=== PATIENT | male | born 1940 | race Caucasian/White ===

== ENCOUNTER 2019-09-08 09:19 | Emergency (ER) | payer MEDICARE, OTHER ==
[~2019-09-08] VITALS: Ht 180.3 cm; Wt 110.2 kg
--- OUTSIDE RECORDS SUMMARY | ~2019-09-08 | XMS | Clinical Summary ---
Demographics + + + | Address | [address] | | | [place] [address] | + + + | Home Phone | | + + + | Preferred Language | Unknown | + + + | Marital Status | Single | + + + | Scientology Affiliation | Unknown | + + + | Race | Unknown | + + + | Ethnic Group | Unknown | + + + Author + + + | Author | [facility] [employer] (Historical as of | | | 04-13-19) | + + + | Organization | [facility] [employer] (Historical as of | | | 04-13-19) | + + + | Address | Unknown | + + + | Phone | Unavailable | + + + Support + + +---------+ + | Name | Relationship | Address | Phone | + + +---------+ + | BernardoZeinab | ECON | Unknown | | + + +---------+ + | Zenia Maharaj | ECON | Unknown | | + + +---------+ + | Julia Diaz | ECON | Unknown | Unavailable | + + +---------+ + | Nehemias Moreland | ECON | Unknown | | + + +---------+ + Care Team Providers + +------+ + | Care Roller Embosser Name | Role | Phone | + +------+ + | Henrik Oro DO | PP | | + +------+ + Allergies No Known Allergies Current Medications + + +--------+---------+------+------+-------+ | Prescription | Sig. | Disp. | Refills | Star | End | Statu | | | | | | t | Date | s | | | | | | Date | | | + + +--------+---------+------+------+-------+ | | Take 1 capsule by | | | | | Activ | | dipyridamole-aspirin | mouth 2 (two) times | | | | | e | | (AGGRENOX) 25-200 | daily. | | | | | | | MG per 12 hr capsule | | | | | | | + + +--------+---------+------+------+-------+ | diltiazem (DILACOR | Take 180 mg by mouth | | | | | Activ | | XR) 180 MG 24 hr | daily. | | | | | e | | capsule | | | | | | | + + +--------+---------+------+------+-------+ | sitaGLIPtin | Take 50 mg by mouth | | | | | Activ | | (JANUVIA) 50 MG | daily. | | | | | e | | tablet | | | | | | | + + +--------+---------+------+------+-------+ | repaglinide | Take 1 mg by mouth 3 | | | | | Activ | | (PRANDIN) 1 MG | (three) times daily | | | | | e | | tablet | before meals. | | | | | | + + +--------+---------+------+------+-------+ | atorvastatin | Take 1 tablet by | 90 | 3 | 03/0 | | Activ | | (LIPITOR) 10 MG | mouth nightly. | tablet | | 1/20 | | e | | tablet | | | | 17 | | | + + +--------+---------+------+------+-------+ | | Take 1 tablet by | 30 | 1 | 07/1 | 07/0 | Activ | | losartan-hydrochloro | mouth daily. | tablet | | 0/20 | 9/20 | e | | thiazide (HYZAAR) | | | | 19 | 20 | | | 50-12.5 MG per | | | | | | | | tablet | | | | | | | + + +--------+---------+------+------+-------+ Active Problems + + + | Problem | Noted Date | + + + | CAD (coronary artery disease) | 02/20/2014 | + + + + + | Last Assessment & Plan: CAD, Hx PCI/stent, LVEF 64%. | | 74yo WM, modestly active, walks daily, exercises, however | | activity limited because of back discomfort, denies any chest | | discomfort, shortness of breath, palpitations, or | | lightheadedness. No visual disturbances, dysarthria, dysphasia, | | lateralizing signs or symptoms. Labs reviewed. Tolerating | | medications. Continue current medications.Hx CABG: noHx | | PCI/stent: 2002, PCI/stent ([facility], specifics unknown).Hx | | Pacemaker/ICD: noLast Cath: 2002, PCI/stent ([facility], specifics | | unknown).Last Echo: naLast stress test, Adenosine MPI, 03/30/2011: | | no ischemia or infarction, LVEF 64%.ECG, 02/20/2014: sinus rhythm, | | PRWP. 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 | + + + + + | Hypertension | 02/20/2014 | + + + + + | Last Assessment & Plan: HTN, controlled, continue current | | meds at current dose (diltiazem, HCTZ, losartan). | + + + + + | Hyperlipidemia | 02/20/2014 | + + + + + | Last Assessment & Plan: Hyperlipidemia, at goal, continue | | current med occurring dose (atorvastatin). Recent labs reviewed | | with patient.Labs, 09/28/2015: T Chol: 99, LDL-Chol: 48, HDL-Chol: | | 31, Tri CPK: 59, Liver enzymes | | NML, K: 4.0, BUN/Cr: 25/1.3 (GFR 584), glu: 144 | | TSH: 1.73, HgbA1c: 6.8, WBC: 9.7, H/H: 15.8/47.8, plt: | | 197 | + + + + + | DM (diabetes mellitus), type 2 | 02/20/2014 | + + + + + | Last Assessment & Plan: DM2, managed by PCP. | + + Family History + +------+ + + | Relation | Name | Status | Comments | + +------+ + + | Father | | | unknwon status | + +------+ + + | Mother | | | unknown status | | | | (Age | | | | | 58) | | + +------+ + + Social History + + + +--------+ + | Tobacco Use | Types | Packs/Day | Years | Date | | | | | Used | | + + + +--------+ + | Current Every Day | Cigarettes | | | Started: 08/28/1949 | | Smoker | | | | | + + + +--------+ + + +---+---+---+ | Smokeless Tobacco: | | | | | Never Used | | | | + +---+---+---+ + + +---------+ + | Alcohol Use | Drinks/We | oz/Week | Comments | | | ek | | | + + +---------+ + | No | 0 | 0.0 | used to drink | | | Standard | | | | | drinks or | | | | | | | | | | equivalen | | | | | t | | | + + +---------+ + + + + | Sex Assigned at | Date Recorded | | | | + + + | Not on file | | + + + Last Filed Vital Signs + + + + | Vital Sign | Reading | Time Taken | + + + + | Blood Pressure | 130/84 | 03/06/2019 9:41 AM PDT | + + + + | Pulse | 90 | 03/06/2019 9:41 AM PDT | + + + + | Temperature | - | - | + + + + | Respiratory Rate | 17 | 10/22/2015 9:55 AM PST | + + + + | Oxygen Saturation | 95% | 03/06/2019 9:41 AM PDT | + + + + | Inhaled Oxygen | - | - | | Concentration | | | + + + + | Weight | 106.8 kg (235 lb 6.4 | 03/06/2019 9:41 AM PDT | | | oz) | | + + + + | Height | 180.3 cm (5' 11") | 03/06/2019 9:41 AM PDT | + + + + | Body Mass Index | 32.83 | 03/06/2019 9:41 AM PDT | + + + + Plan of Treatment +--------+---------+ + + + | Date | Type | Specialty | Care Team | Description | +--------+---------+ + + + | 03/11/ | Office | | Benitez Santos, | | | 2020 | Visit | | MD [facility] [address] | | | | | | Dr [address], | | | | | | [place] [id number] | | | | | | [phone] | | | | | | | | +--------+---------+ + + + + + + + + | Health Maintenance | Due Date | Last Done | Comments | + + + + + | Diabetic Eye Exam | | | | | | 0 | | | + + + + + | Diabetic Foot Exam | | | | | | 0 | | | + + + + + | Microalbumin | | | | | Screening | 0 | | | + + + + + | Vaccine: | | | | | Dtap/Tdap/Td (1 - | 9 | | | | Tdap) | | | | + + + + + | Vaccine: Zoster (1 | | | | | of 2) | 0 | | | + + + + + | Vaccine: | | | | | Pneumococcal 65+ | 5 | | | | Low/Medium Risk (1 | | | | | of 2 - PCV13) | | | | + + + + + | Vaccine: Influenza | | | | | (#1) | 9 | | | + + + + + Results Not on filefrom Last 3 Months Insurance + +--------+ +------+-------+ + | Payer | Benefi | Subscriber | Type | Phone | Address | | | t Plan | ID | | | | | | / | | | | | | | Group | | | | | + +--------+ +------+-------+ + | MEDICARE | MEDICA | [id number] | | | [address] | | | RE | | | | [place] [address] | | | IP-OP | | | | | + +--------+ +------+-------+ + | MAGALIE MARTINEZ - | CHERYL | [id number] | | | [address] [address] | | [place] | [place] | | | | [place] | | | LIFE | | | | [address] | + +--------+ +------+-------+ + + +--------+ +--------+ + + | Guarantor Name | Accoun | Relation to | Date | Phone | Billing Address | | | t Type | Patient | of | | | | | | | | | | + +--------+ +--------+ + + | JUAN HIGUERA | Person | Self [birth year] Home: | [address] | | | al/Fam | | 1941 | [phone] [address] [place], | | | [place] | | | [phone] | [place] [address] | + +--------+ +--------+ + +
--- OUTSIDE RECORDS SUMMARY | ~2019-09-08 | XMS | Encounter Summary ---
Demographics + + + | Address | [address] | | | [place] [address] | + + + | Home Phone | | + + + | Preferred Language | Unknown | + + + | Marital Status | Single | + + + | Worship Affiliation | Unknown | + + + | Race | Unknown | + + + | Ethnic Group | Unknown | + + + Author + + + | Author | [facility] | | | and [place] | + + + | Organization | [facility] | | | and [place] | + + + | Address | Unknown | + + + | Phone | Unavailable | + + + Support + + +---------+ + | Name | Relationship | Address | Phone | + + +---------+ + | Eleni Diaz | ECON | Unknown | Unavailable | + + +---------+ + | Zeinab Bernardo | ECON | Unknown | | + + +---------+ + | Zenia Maharaj | ECON | Unknown | | + + +---------+ + Care Team Providers + +------+ + | Care Ve Teacher Name | Role | Phone | + +------+ + PCP | Unavailable | + +------+ + Encounter Details +--------+ + + + + | Date | Type | Department | Care Team | Description | +--------+ + + + + | 01/26/ | Hospital | [facility] | Conversion | Pain | | 2017 | Encounter | [address] | Transaction, | | | | | [address] | Provider Unknown | | | | | [place], [place] | [phone] | | | | | [address] | | | | | | [phone] | | | +--------+ + + + + Social History + +-------+ +--------+------+ | Tobacco Use | Types | Packs/Day | Years | Date | | | | | Used | | + +-------+ +--------+------+ | Never Assessed | | | | | + +-------+ +--------+------+ + + + | Sex Assigned at | Date Recorded | | | | + + + | Not on file | | + + + + + + + | Job Start Date | Occupation | Industry | + + + + | Not on file | Not on file | Not on file | + + + + + + + + | Travel History | Travel Start | Travel End | + + + + + + | No recent travel history available. | + + documented as of this encounter Medications at Time of Discharge + + + +---------+ + + | Medication | Sig | Dispensed | Refills | Start | End Date | | | | | | Date | | + + + +---------+ + + | | Take 25-200 mg by | | 0 | 05/10/20 | | | aspirin-dipyridamole | mouth 2 times daily. | | | 12 | | | (AGGRENOX) 25-200 | | | | | | | mg per 12 hr capsule | | | | | | + + + +---------+ + + | atorvaSTATin | Take 1 tablet by | | 0 | 10/27/19 | | | (LIPITOR) 10 mg | mouth nightly. | | | 17 | | | tablet | | | | | | + + + +---------+ + + | diltiazem (DILACOR | Take 180 mg by mouth | | 0 | 05/10/20 | | | XR) 180 MG 24 hr | Daily. | | | 12 | | | capsule | | | | | | + + + +---------+ + + | fluoxetine | Take 10 mg by mouth | | 0 | 05/10/20 | | | (PROZAC) 10 MG | Daily. | | | 12 | | | tablet | | | | | | + + + +---------+ + + | | Take 25 mg by mouth | | 0 | 05/10/20 | | | hydrochlorothiazide | Daily. | | | 12 | | | 25 mg tablet | | | | | | + + + +---------+ + + | losartan (COZAAR) | Take 100 mg by mouth | | 0 | 05/10/20 | | | 100 MG tablet | Daily. | | | 12 | | + + + +---------+ + + | lovastatin | Take 40 mg by mouth | | 0 | 05/10/20 | | | (MEVACOR) 40 MG | Daily. | | | 12 | | | tablet | | | | | | + + + +---------+ + + | metFORMIN | Take 500 mg by mouth | | 0 | 05/10/20 | | | (GLUCOPHAGE) 500 mg | 2 times daily. | | | 12 | | | tablet | | | | | | + + + +---------+ + + | repaglinide | Take 1 mg by mouth 3 | | 0 | 05/10/20 | | | (PRANDIN) 1 mg | times daily. | | | 12 | | | tablet | | | | | | + + + +---------+ + + documented as of this encounter Plan of Treatment +--------+---------+ + + + | Date | Type | Specialty | Care Team | Description | +--------+---------+ + + + | 03/11/ | Office | Cardiology | Benitez Santos, | | | 2019 | Visit | | [address] | | | | | [facility] [place] | | | | | | [address] | | | | | | | | +--------+---------+ + + + documented as of this encounter Procedures + +--------+ + + + | Procedure Name | Priori | Date/Time | Associated Diagnosis | Comments | | | ty | | | | + +--------+ + + + | CT ANGIOGRAM HEAD | Routin | 01/26/2017 | | Results for this | | NECK W CONTRAST | e | 10:53 PM | | procedure are in the | | | | PDT | | results section. | + +--------+ + + + documented in this encounter Results CT Angiogram Head and Neck w Contrast (01/26/2017 10:53 PM PDT) + + | Specimen | + + | | + + + + + | Narrative | Performed At | + + + | This is a non-reportable procedure without a radiologist report and | | | is used for image storage only | | + + + + + | Procedure Note | + + | Leonidas Rubin Manish - 04/11/2019 12:02 AM PDT This is a non-reportable procedure | | without a radiologist report and isused for image storage only | + + documented in this encounter Visit Diagnoses + + | Diagnosis | + + | Pain Generalized pain | + + documented in this encounter"
--- OUTSIDE RECORDS SUMMARY | ~2019-09-08 | XMS | Encounter Summary ---
Demographics + + + | Address | [address] | | | [place] [address] | + + + | Home Phone | | + + + | Preferred Language | Unknown | + + + | Marital Status | Single | + + + | Spiritism Affiliation | Unknown | + + + | Race | Unknown | + + + | Ethnic Group | Unknown | + + + Author + + + | Author | [facility] | | | and [place] | + + + | Organization | [facility] | | | and [...] Team Providers + +------+ + | Care Produce Laborer Name | Role | Phone | + +------+ + PCP | Unavailable | + +------+ + Encounter Details +--------+ + + + + | Date | Type | Department | Care Team | Description | +--------+ + + + + | 03/22/ | Orders Only | [facility] | Provider, | | | 2018 | | [facility] | [address] | | | | | CONVERSION [address] | [address] [place] | | | | | [address] [place], [place] | [place] [address] | | | | | [address] | | | | | | [phone] | | | +--------+ + + + + Social History + +-------+ +--------+------+ | Tobacco Use | Types | Packs/Day | Years | Date | | | | | Used | | + +-------+ +--------+------+ | Current Every Day | | | | | | Smoker | | | | | + +-------+ [...] | | 2019 | Visit | | MD [address] | | | | | | [place] | | | | | | [id number] | | | | | | | | +--------+---------+ + + + documented as of this encounter Visit Diagnoses Not on filedocumented in this encounter"
--- OUTSIDE RECORDS SUMMARY | ~2019-09-08 | XMS | Clinical Summary ---
Demographics + + + | Address | [address] | | | [place] [address] | + + + | Home Phone | | + + + | Preferred Language | Unknown | + + + | Marital Status | Single | + + + | Roman Catholic Affiliation | Unknown | + + + | Race | Unknown | + + + | Ethnic Group | Unknown | + + + Author + + + | Author | [facility] | | | and [place] | + + + | Organization | [facility] | | | and [place] | + + + | Address | Unknown | + + + | Phone | Unavailable | + + + Support + + +---------+ + | Name | Relationship | Address | Phone | + + +---------+ + | Eleni Diaz | ECON | Unknown | Unavailable | + + +---------+ + | Zeinab Chang | ECON | Unknown | | + + +---------+ + | Zenia Maharaj | ECON | Unknown | | + + +---------+ + Care Team Providers + +------+ + | Care Straw Boss Name | Role | Phone | + +------+ + | Henrik Oro DO | PCP | | + +------+ + Allergies No Known Allergies Medications + + + +---------+------+------+-------+ | Medication | Sig | Dispensed | Refills | Star | End | Statu | | | | | | t | Date | s | | | | | | Date | | | + + + +---------+------+------+-------+ | fluoxetine | Take 10 mg by mouth | | 0 | 09/1 | | Activ | | (PROZAC) 10 MG | Daily. | | | 3/20 | | e | | tablet | | | | 12 | | | + + + +---------+------+------+-------+ | lovastatin | Take 40 mg by mouth | | 0 | 09/1 | | Activ | | (MEVACOR) 40 MG | Daily. | | | 3/20 | | e | | tablet | | | | 12 | | | + + + +---------+------+------+-------+ | repaglinide | Take 1 mg by mouth 3 | | 0 | 09/1 | | Activ | | (PRANDIN) 1 mg | times daily. | | | 3/20 | | e | | tablet | | | | 12 | | | + + + +---------+------+------+-------+ | | Take 25 mg by mouth | | 0 | 09/1 | | Activ | | hydrochlorothiazide | Daily. | | | 3/20 | | e | | 25 mg tablet | | | | 12 | | | + + + +---------+------+------+-------+ | | Take 25-200 mg by | | 0 | 09/1 | | Activ | | aspirin-dipyridamole | mouth 2 times daily. | | | 3/20 | | e | | (AGGRENOX) 25-200 | | | | 12 | | | | mg per 12 hr capsule | | | | | | | + + + +---------+------+------+-------+ | losartan (COZAAR) | Take 100 mg by mouth | | 0 | 09/1 | | Activ | | 100 MG tablet | Daily. | | | 3/20 | | e | | | | | | 12 | | | + + + +---------+------+------+-------+ | diltiazem (DILACOR | Take 180 mg by mouth | | 0 | 04/28 | | Activ | | XR) 180 MG 24 hr | Daily. | | | 320 | | e | | capsule | | | | 12 | | | + + + +---------+------+------+-------+ | metFORMIN | Take 500 mg by mouth | | 0 | 04/28 | | Activ | | (GLUCOPHAGE) 500 mg | 2 times daily. | | | 11/14 | | e | | tablet | | | | 12 | | | + + + +---------+------+------+-------+ | atorvaSTATin | Take 1 tablet by | | 0 | 03/0 | | Activ | | (LIPITOR) 10 mg | mouth nightly. | | | 09/16 | | e | | tablet | | | | 17 | | | + + + +---------+------+------+-------+ | | Take 1 tablet by | | 0 | 1 | 07/0 | Activ | | losartan-hydrochloro | mouth Daily. | | | 0/20 | 9/20 | e | | thiazide (HYZAAR) | | | | 19 | 20 | | | 50-12.5 MG per | | | | | | | | tablet | | | | | | | + + + +---------+------+------+-------+ | SITagliptin | Take 50 mg by mouth | | 0 | | | Activ | | (JANUVIA) 50 MG | Daily. | | | | | e | | tablet | | | | | | | + + + +---------+------+------+-------+ | | Take 1 capsule by | | 0 | | | Activ | | aspirin-dipyridamole | mouth 2 times daily. | | | | | e | | (AGGRENOX) 25-200 | | | | | | | | mg per 12 hr capsule | | | | | | | + + + +---------+------+------+-------+ | repaglinide | Take 1 mg by mouth 3 | | 0 | | | Activ | | (PRANDIN) 1 mg | times daily. Before | | | | | e | | tablet | meals | | | | | | + + + +---------+------+------+-------+ Active Problems + + + | Problem | Noted Date | + + + | Coronary atherosclerosis | 02/20/2014 | + + + + + | Overview: Last Assessment & Plan: CAD, Hx PCI/stent, LVEF | | 64%. 74yo WM, modestly active, walks daily, exercises, | | however activity limited because of back discomfort, denies any | | chest discomfort, shortness of breath, palpitations, or | | lightheadedness. No visual disturbances, dysarthria, dysphasia, | | lateralizing signs or symptoms. Labs reviewed. Tolerating | | medications. Continue current medications.Hx CABG: noHx | | PCI/stent: 2002, PCI/stent ([facility], specifics unknown).Hx | | Pacemaker/ICD: noLast Cath: 2002, PCI/stent ([facility], specifics | | unknown).Last Echo: naLast stress test, Adenosine MPI, 03/30/2011: | | no ischemia or infarction, LVEF 64%.ECG, 02/20/2014: sinus rhythm, | | PRWP. | + + + + + | DM (diabetes mellitus), type 2 | 02/20/2014 | + + + + + | Overview: Last Assessment & Plan: | | DM2, managed by PCP. | + + + + + | Hyperlipidemia | 02/20/2014 | + + + + + | Overview: Last Assessment & Plan: Hyperlipidemia, at goal, | | continue current med occurring dose (atorvastatin). Recent labs | | reviewed with patient.Labs, 09/28/2015: T Chol: 99, LDL-Chol: 48, | | HDL-Chol: 31, Tri CPK: 59, Liver | | enzymes NML, K: 4.0, BUN/Cr: 25/1.3 (GFR 584), glu: 144 | | TSH: 1.73, HgbA1c: 6.8, WBC: 9.7, H/H: 15.8/47.8, | | plt: 197 | + + + + + | Hypertension | 02/20/2014 | + + + + + | Overview: Last Assessment & Plan: HTN, controlled, continue | | current meds at current dose (diltiazem, HCTZ, losartan). | + + + + + | PAD (peripheral artery disease) | 02/20/2014 | + + + + + | Overview: Last Assessment & Plan: ASCVD; caroitd stenosis (Hx | | left hemispheric CVA, no residual) and claudication.Carotid US, | | 01/21/2011: left ICA occluded, right ICA moderate disease, | | vertebral flow is antegrade.Lower Ext, arterial US, 01/21/2011: | | severe tangela disease.CT-angio, 02/21/2011: R/L occuded superficial | | femoral arteries, colateralized, tangela popliteal disease. | + + + +---+ | ABNORMAL CHEST XRAY | | + +---+ Family History + +------+ + + | Relation | Name | Status | Comments | + +------+ + + | Father | | | unknwon status | + +------+ + + | Mother | | | unknown status | | | | (Age | | | | | 58) | | + +------+ + + Social History + +-------+ +--------+------+ [...] recent travel history available. | + + Last Filed Vital Signs + + + + + | Vital Sign | Reading | Time Taken | Comments | + + + + + | Blood Pressure | 130/84 | 03/06/2019 10:02 AM | | | | | PDT | | + + + + + | Pulse | 90 | 03/06/2019 10:02 AM | | | | | PDT | | + + + + + | Temperature | - | - | | + + + + + | Respiratory Rate | 17 | 10/22/2015 9:56 AM | | | | | PST | | + + + + + | Oxygen Saturation | - | - | | + + + + + | Inhaled Oxygen | - | - | | | Concentration | | | | + + + + + | Weight | 106.8 kg (235 lb 6.4 | 03/06/2019 10:02 AM | | | | oz) | PDT | | + + + + + | Height | 180.3 cm (5' 11") | 03/06/2019 10:02 AM | | | | | PDT | | + + + + + | Body Mass Index | 32.83 | 03/06/2019 10:02 AM | | | | | PDT | | + + + + + Plan of Treatment +--------+---------+ + + + | Date | Type | Specialty | Care Team | Description | +--------+---------+ + + + | 03/11/ | Office | Cardiology | Benitez Santos, | | | 2019 | Visit | | MD [address] | | | | | | [address] [place], [place] | | | | | | [address] | | | | | | | | +--------+---------+ + + + + + + + + | Health Maintenance | Due Date | Last Done | Comments | + + + + + | Vaccine: | | | | | Dtap/Tdap/Td (1 - | 1 | | | | Tdap) | | | | + + + + + | Diabetic Eye Exam | | | | | | 8 | | | + + + + + | Diabetic Foot Exam | | | | | | 8 | | | + + + + + | Vaccine: Zoster (1 | | | | | of 2) | 0 | | | + + + + + | Vaccine: | | | | | Pneumococcal 65+ (1 | 5 | | | | of 2 - PCV13) | | | | + + + + + | Adult Annual | | | | | Wellness Visit | 9 | | | + + + + + | Vaccine: Influenza | | | | | (#1) | 9 | | | + + + + + Results Not on filefrom Last 3 Months Advance Directives + + + + + | Type | Date Recorded | Patient | Explanation | | | | Oil Pumper | | + + + + + | Power of | | | | | Nib Inspector | | | | + + + + + | Advance | | | | | Directive | | | | + + + + +
--- OUTSIDE RECORDS SUMMARY | ~2019-09-08 | XMS | Encounter Summary ---
Demographics + + + | Address | [address] | | | [place] [address] | + + + | Home Phone | | + + + | Preferred Language | Unknown | + + + | Marital Status | Single | + + + | Anabaptist Affiliation | Unknown | + + + | Race | Unknown | + + + | Ethnic Group | Unknown | + + + Author + + + | Author | [facility] | | | and [place] | + + + | Organization | [facility] | | | [...] Team Providers + +------+ + | Care Floatlight Loading Supervisor Name | Role | Phone | + +------+ + PCP | Unavailable | + +------+ + Encounter Details +--------+ + + + + | Date | Type | Department | Care Team | Description | +--------+ + + + + | 01/08/ | Hospital | [facility] | Yogesh Aguilar, | | | 2009 | Encounter | MED CTR XRAY [address] | MD [address] | | | | | [place] | [place], [place] | | | | | [place] [address] | [id number] | | | | | [phone] | | | +--------+ + + + [...] [place] | | | | | | [id number] | | | | | | | | +--------+---------+ + + + documented as of this encounter Visit Diagnoses Not on filedocumented in this encounter"
--- OUTSIDE RECORDS SUMMARY | ~2019-09-08 | XMS | Encounter Summary ---
Demographics + + + | Address | [address] | | | [place] [address] | + + + | Home Phone | | + + + | Preferred Language | Unknown | + + + | Marital Status | Single | + + + | Latter Day Affiliation | Unknown | + + + | Race | Unknown | + + + | Ethnic Group | Unknown | + + + Author + + + | Author | [facility] | | | and [place] | + + + | Organization | [facility] | | | and [...] Team Providers + +------+ + | Care System Manager Name | Role | Phone | + +------+ + PCP | Unavailable | + +------+ + Encounter Details +--------+ + + + + | Date | Type | Department | Care Team | Description | +--------+ + + + + | 01/27/ | Hospital | [facility] | Conversion | Pain | | 2017 | Encounter | CONVERSION [address] | Transaction, | | | | | [address] | Provider Unknown | | | | | [place], [place] | [phone] | | | | | [address] | | | | | | [phone] | | | +--------+ + + + [...] | | | | | | [address] [facility] | | | | | | [address] | | | | | | | | +--------+---------+ + + + documented as of this encounter Procedures + +--------+ + + + | Procedure Name | Priori | Date/Time | Associated Diagnosis | Comments | | | ty | | | | + +--------+ + + + | CT HEAD WO CONTRAST | Routin | 01/26/2017 | | Results for this | | | e | 12:07 AM | | procedure are in the | | | | PDT | | results section. | + +--------+ + + + documented in this encounter Results CT Head wo Contrast (01/26/2017 12:07 AM PDT) + + | Specimen | + [...]
--- OUTSIDE RECORDS SUMMARY | ~2019-09-08 | XMS | Clinical Summary ---
Demographics + + + | Address | [address] | | | [place] [address] | + + + | Home Phone | | + + + | Preferred Language | Unknown | + + + | Marital Status | Single | + + + | Holiness Affiliation | Unknown | + + + | Race | Unknown | + + + | Ethnic Group | Unknown | + + + Author + + + | Author | [facility] | | | and [place] | + + + | Organization | [facility] | | | [...] Team Providers + +------+ + | Care Key Entry Operator Name | Role | Phone | + [...] CABG: noHx | | PCI/stent: 2002, PCI/stent ([place], specifics unknown).Hx | | Pacemaker/ICD: noLast Cath: 2002, PCI/stent ([place], specifics | | unknown).Last Echo: naLast stress [...] | | | | | [address] [place], [place] | | | | | | [address] | | | | | | | [...] Patient | 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
--- OUTSIDE RECORDS SUMMARY | ~2019-09-08 | XMS | Encounter Summary ---
Demographics + + + | Address | [address] | | | [place] [address] | + + + | Home Phone | | + + + | Preferred Language | Unknown | + + + | Marital Status | Single | + + + | Anabaptist Affiliation | Unknown | + + + | Race | Unknown | + + + | Ethnic Group | Unknown | + + + Author + + + | Author | [facility] | | | and [place] | + + + | Organization | [facility] | | | and [...] Team Providers + +------+ + | Care Certified Appliance Service Technician Name | Role | Phone | + +------+ + PCP | Unavailable | + +------+ + Encounter Details +--------+ + + + + | Date | Type | Department | Care Team | Description | +--------+ + + + + | 07/04/ | Hospital | [facility] | Jeff Yogesh, | | | 2007 | Encounter | MED CTR XRAY [address] | MD [address] | | | | | [place] | [place], [place] | | | | | [place] [address] | [address] | | | | | [phone] | | | +--------+ + + + [...] [place] | | | | | | [id number] | | | | | | | | +--------+---------+ + + + documented as of this encounter Visit Diagnoses Not on filedocumented in this encounter"
--- OUTSIDE RECORDS SUMMARY | ~2019-09-08 | XMS | Encounter Summary ---
Demographics + + + | Address | [address] | | | [place] [address] | + + + | Home Phone | | + + + | Preferred Language | Unknown | + + + | Marital Status | Single | + + + | Hinduism Affiliation | Unknown | + + + | Race | Unknown | + + + | Ethnic Group | Unknown | + + + Author + + + | Author | [facility] | | | and [place] | + + + | Organization | [facility] | | | [...] Team Providers + +------+ + | Care Mechanical Specialist Name | Role | Phone | + +------+ + PCP | Unavailable | + +------+ + Encounter Details +--------+ + + + + | Date | Type | Department | Care Team | Description | +--------+ + + + + | 05/10/ | Abstract | [place] [facility] | DATA [facility]IGRATION [facility] | | | 2011 | | Conversion Location | SR | | | | | [phone] | | | +--------+ + + + [...] + + documented as of this encounter Last Filed Vital Signs + + + + + | Vital Sign | Reading | Time Taken | Comments | + + + + + | Blood Pressure | 132/56 | 02/01/2010 12:00 AM | | | | | PDT | | + + + + + | Pulse | - | - | | + + + + + | Temperature | - | - | | + + + + + | Respiratory Rate | - | - | | + + + + + | Oxygen Saturation | - | - | | + + + + + | Inhaled Oxygen | - | - | | | Concentration | | | | + + + + + | Weight | 116.8 kg (257 lb 9.6 | 02/01/2010 12:00 AM | | | | oz) | PDT | | + + + + + | Height | 175.3 cm (5' 9") | 01/08/2009 12:00 AM | | | | | PDT | | + + + + + | Body Mass Index | 38.04 | 01/08/2009 12:00 AM | | | | | PDT | | + + + + + documented in this encounter Plan of Treatment +--------+---------+ + + + | Date | Type | Specialty | Care Team | Description | +--------+---------+ + + + | 03/11/ | Office | Cardiology | Benitez Santos, | | | 2019 | Visit | | MD [address] | | | | | | [place] | | | | | | [address] | | | | | | | | +--------+---------+ + + + documented as of this encounter Visit Diagnoses Not on filedocumented in this encounter
--- OUTSIDE RECORDS SUMMARY | ~2019-09-08 | XMS | Encounter Summary ---
Demographics + + + | Address | [address] | | | [place] [address] | + + + | Home Phone | | + + + | Preferred Language | Unknown | + + + | Marital Status | Single | + + + | Alevism Affiliation | Unknown | + + + | Race | Unknown | + + + | Ethnic Group | Unknown | + + + Author + + + | Author | [facility] | | | and [place] | + + + | Organization | [facility] | | | [...] Team Providers + +------+ + | Care School Cleaner Name | Role | Phone | + +------+ + PCP | Unavailable | + +------+ + Encounter Details +--------+ + + + + | Date | Type | Department | Care Team | Description | +--------+ + + + + | 01/27/ | Hospital | [facility] | Conversion | Pain | | 2017 | Encounter | CONVERSION [address] | Transaction, | | | | | [address] | Provider Unknown | | | | | [place], [place] | [phone] | | | | | [address] | | | | | | [phone] | | | +--------+ + + + [...] | | | | | [address] [facility] [place] | | | | | | [address] | | | | | | | [...]
--- OUTSIDE RECORDS SUMMARY | ~2019-09-08 | XMS | Encounter Summary ---
Demographics + + + | Address | [address] | | | [place] [address] | + + + | Home Phone | | + + + | Preferred Language | Unknown | + + + | Marital Status | Single | + + + | Sabianist Affiliation | Unknown | + + + | Race | Unknown | + + + | Ethnic Group | Unknown | + + + Author + + + | Author | [facility] | | | and [place] | + + + | Organization | [facility] | | | and [...] Team Providers + +------+ + | Care Software Security Consultant Name | Role | Phone | + +------+ + PCP | Unavailable | + +------+ + Encounter Details +--------+ + + + + | Date | Type | Department | Care Team | Description | +--------+ + + + + | 02/01/ | Hospital | [facility] | Yogesh Aguilar, | | | 2009 | Encounter | MED CTR XRAY [address] | MD [address] | | | | | [place] | [place], [place] | | | | | [place] [address] | [address] | | | | | [phone] | | | +--------+ + + + [...] [place] | | | | | | [id number] | | | | | | | | +--------+---------+ + + + documented as of this encounter Visit Diagnoses Not on filedocumented in this encounter"
--- OUTSIDE RECORDS SUMMARY | ~2019-09-08 | XMS | Encounter Summary ---
Demographics + + + | Address | [address] | | | [place] [address] | + + + | Home Phone | | + + + | Preferred Language | Unknown | + + + | Marital Status | Single | + + + | Adventism Affiliation | Unknown | + + + | Race | Unknown | + + + | Ethnic Group | Unknown | + + + Author + + + | Author | [facility] | | | and [place] | + + + | Organization | [facility] | | [...] Team Providers + +------+ + | Care Lineman Apprentice Name | Role | Phone | + +------+ + PCP | Unavailable | + +------+ + Encounter Details +--------+ + + + + | Date | Type | Department | Care Team | Description | +--------+ + + + + | 01/26/ | Hospital | [facility] | Conversion | Pain | | 2017 | Encounter | [address]VERSION [address] | Transaction, | | | | | [address] | Provider Unknown | | | | | [place], [place] | [phone] | | | | | [address] | | | | | | [phone] | | | +--------+ + + + [...] | | | | | | [address] [facility] [place] | | | | | | [address] | | | | | | | [...]
--- OUTSIDE RECORDS SUMMARY | ~2019-09-08 | XMS | Encounter Summary ---
Demographics + + + | Address | [address] | | | [place] [address] | + + + | Home Phone [...] + + | Author | [facility] | | | and [place] | + + + | Organization | [facility] | | [...] Team Providers + +------+ + | Care Flooring Grader Name | Role | Phone | + +------+ + | Henrik Oro DO | PCP | | + +------+ + Encounter Details +--------+ + + + + | Date | Type | Department | Care Team | Description | +--------+ + + + + | 09/28/ | Orders Only | [facility] | Henrik Oro DO | | | 2016 | | CARDIOLOGY [place] | [address] | | | | | [address] | [address], | | | | | [place], [place] | [place] [address] | | | | | [address] | [phone] | | | | | [phone] | | | +--------+ + + + [...] | | | | | [address] [place], [place] | | | | | | [address] | | | | | | | | +--------+---------+ + + + documented as of this encounter Procedures + +--------+ + + + | Procedure Name | Priori | Date/Time | Associated Diagnosis | Comments | | | ty | | | | + +--------+ + + + | EXTERNAL LAB: CBC | Routin | 09/28/2015 | | Results for this | | | e | 7:35 AM | | procedure are in the | | | | PST | | results section. | + +--------+ + + + | LIPID PANEL | Routin | 09/28/2015 | | Results for this | | | e | 7:35 AM | | procedure are in the | | | | PST | | results section. | + +--------+ + + + | TSH | Routin | 09/28/2015 | | Results for this | | | e | 7:35 AM | | procedure are in the | | | | PST | | results section. | + +--------+ + + + | HEMOGLOBIN A1C | Routin | 09/28/2015 | | Results for this | | | e | 7:35 AM | | procedure are in the | | | | PST | | results section. | + +--------+ + + + | CK TOTAL | Routin | 09/28/2015 | | Results for this | | | e | 7:35 AM | | procedure are in the | | | | PST | | results section. | + +--------+ + + + | COMPREHENSIVE | Routin | 09/28/2015 | | Results for this | | METABOLIC PANEL | e | 7:35 AM | | procedure are in the | | | | PST | | results section. | + +--------+ + + + documented in this encounter Results External Lab: CBC (09/28/2015 7:35 AM PST) + + + + + + | Component | Value | Ref Range | Performed | Pathologist | | | | | At | Signature | + + + + + + | WBC | 9.7 | 4.5 - 11.0 10 | EXTERNAL | | | | | | LAB | | + + + + + + | RED CELL | 5.37 | 4.3 - 5.7 10 | EXTERNAL | | | COUNT | | | LAB | | + + + + + + | Hgb | 15.8 | 13.5 - 18.0 | EXTERNAL | | | | | g/dL | LAB | | + + + + + + | Hematocrit, | 47.8 | 41 - 50 % | EXTERNAL | | | POC | | | LAB | | + + + + + + | MCV | 88.9 | 81 - 99 fL | EXTERNAL | | | | | | LAB | | + + + + + + | MCH | 29 | 27 - 33 pg | EXTERNAL | | | | | | LAB | | + + + + + + | MCHC | 33 | 30 - 36 g/dL | EXTERNAL | | | | | | LAB | | + + + + + + | Platelet | 197 | 140 - 440 K/ L | EXTERNAL | | | Count | | | LAB | | | Plasma | | | | | + + + + + + | RDW-CV | 14.0 | 10.5 - 15.0 % | EXTERNAL | | | | | | LAB | | + + + + + + | MPV | | fL | EXTERNAL | | | | | | LAB | | + + + + + + | Differentia | | | EXTERNAL | | | l Type | | | LAB | | + + + + + + | % Segmented | 67.7 | 39 - 80 % | EXTERNAL | | | | | | LAB | | | Neutrophils | | | | | + + + + + + | % | 20.4 (A) | 24 - 44 % | EXTERNAL | | | Lymphocytes | | | LAB | | + + + + + + | % Monocytes | 9.1 | 0 - 12 % | EXTERNAL | | | | | | LAB | | + + + + + + | % | 2.0 | 0 - 6 % | EXTERNAL | | | Eosinophils | | | LAB | | + + + + + + | % Basophils | 0.8 | 0 - 2 % | EXTERNAL | | | | | | LAB | | + + + + + + | Absolute | | / L | EXTERNAL | | | Segmented | | | LAB | | | Neutrophils | | | | | + + + + + + | Absolute | | / L | EXTERNAL | | | Lymphocytes | | | LAB | | + + + + + + | Absolute | | / L | EXTERNAL | | | Monocytes | | | LAB | | + + + + + + | Absolute | | / L | EXTERNAL | | | Eosinophils | | | LAB | | + + + + + + | Absolute | | / L | EXTERNAL | | | Basophils | | | LAB | | + + + + + + + + | Specimen | + + | Blood specimen | | (specimen) | + + + +---------+ + + | Performing | Address | City/State/Zipcode | Phone Number | | Organization | | | | + +---------+ + + | EXTERNAL LAB | | | | + +---------+ + + TSH (09/28/2015 7:35 AM PST) + +-------+ + + + | Component | Value | Ref Range | Performed | Pathologist | | | | | At | Signature | + +-------+ + + + | TSH | 1.73 | 0.270 - 4.20 | EXTERNAL | | | | | uIU/mL | LAB | | + +-------+ + + + + + | Specimen | + + | Blood specimen | | (specimen) | + + + +---------+ + + | Performing | Address | City/State/Zipcode | Phone Number | | Organization | | | | + +---------+ + + | EXTERNAL LAB | | | | + +---------+ + + Hemoglobin A1C (09/28/2015 7:35 AM PST) + + + + + + | Component | Value | Ref Range | Performed | Pathologist | | | | | At | Signature | + + + + + + | Hemoglobin | 6.8Comment: Est avg | % | EXTERNAL | | | A1c | glucose 148 | | LAB | | + + + + + + + + | Specimen | + + | Blood specimen | | (specimen) | + + + +---------+ + + | Performing | Address | City/State/Zipcode | Phone Number | | Organization | | | | + +---------+ + + | EXTERNAL LAB | | | | + +---------+ + + CK Total (09/28/2015 7:35 AM PST) + +-------+ + + + | Component | Value | Ref Range | Performed | Pathologist | | | | | At | Signature | + +-------+ + + + | CK, Total | 59 | 24 - 195 U/L | EXTERNAL | | | | | | LAB | | + +-------+ + + + + + | Specimen | + + | Blood specimen | | (specimen) | + + + +---------+ + + | Performing | Address | City/State/Zipcode | Phone Number | | Organization | | | | + +---------+ + + | EXTERNAL LAB | | | | + +---------+ + + Lipid Panel (09/28/2015 7:35 AM PST) + + + + + + | Component | Value | Ref Range | Performed | Pathologist | | | | | At | Signature | + + + + + + | Cholesterol | 99 | 200 mg/dL | EXTERNAL | | | | | | LAB | | + + + + + + | Triglycerid | 100 | 30 - 150 mg/dL | EXTERNAL | | | es | | | LAB | | + + + + + + | HDL | 31.3 (A) | 40 mg/dl | EXTERNAL | | | | | | LAB | | + + + + + + | LDL | 48 | 100 mg/dL | EXTERNAL | | | Cholesterol | | | LAB | | | , | | | | | | Calculated, | | | | | | External | | | | | + + + + + + | LDl/HDL | | | EXTERNAL | | | Ratio | | | LAB | | + + + + + + | Chol/HDL | 3.2 | 4.97 | EXTERNAL | | | Ratio | | | LAB | | + + + + + + | VLDL | 20 | 4 - 40 mg/dL | EXTERNAL | | | | | | LAB | | + + + + + + | Non HDL | 68 | 130 | EXTERNAL | | | Chol. | | | LAB | | | (LDL+VLDL) | | | | | + + + + + + + + | Specimen | + + | Blood specimen | | (specimen) | + + + +---------+ + + | Performing | Address | City/State/Zipcode | Phone Number | | Organization | | | | + +---------+ + + | EXTERNAL LAB | | | | + +---------+ + + Comprehensive Metabolic Panel (09/28/2015 7:35 AM PST) + + + + + + | Component | Value | Ref Range | Performed | Pathologist | | | | | At | Signature | + + + + + + | Glucose, | 144 (A) | 70 - 100 mg/dL | EXTERNAL | | | Fasting | | | LAB | | + + + + + + | BUN | 25 (A) | 6 - 23 mg/dL | EXTERNAL | | | | | | LAB | | + + + + + + | Creatinine | 1.30 (A) | 0.70 - 1.18 | EXTERNAL | | | | | mg/dL | LAB | | + + + + + + | BUN/Creatin | 19.2 | 6.0 - 28.6 | EXTERNAL | | | ine Ratio | | | LAB | | + + + + + + | Calcium | 9.7 | 8.4 - 10.2 | EXTERNAL | | | | | mg/dL | LAB | | + + + + + + | Protein, | 6.2 | 6.0 - 8.0 g/dL | EXTERNAL | | | Total | | | LAB | | + + + + + + | Albumin | 4.5 | 3.5 - 5.0 | EXTERNAL | | | | | | LAB | | + + + + + + | Globulin | 1.7 (A) | 1.8 - 3.5 | EXTERNAL | | | | | | LAB | | + + + + + + | A/G Ratio | 2.6 (A) | 1.1 - 2.4 | EXTERNAL | | | | | | LAB | | + + + + + + | Bilirubin | 0.4 | 0.0 - 1.2 mg/dL | EXTERNAL | | | Total | | | LAB | | + + + + + + | ALP, | 65 | 30 - 128 | EXTERNAL | | | External | | | LAB | | + + + + + + | ALT | 22 | 7 - 52 U/L | EXTERNAL | | | | | | LAB | | + + + + + + | AST | 13 | 13 - 39 U/L | EXTERNAL | | | | | | LAB | | + + + + + + | Na | 138 | 132 - 143 | EXTERNAL | | | | | mmol/L | LAB | | + + + + + + | K | 4.0 | 3.6 - 5.1 | EXTERNAL | | | | | mmol/L | LAB | | + + + + + + | Cl | 100 | 95 - 112 mmol/L | EXTERNAL | | | | | | LAB | | + + + + + + | CO2 | 25 | 19 - 31 mmol/L | EXTERNAL | | | | | | LAB | | + + + + + + | Anion Gap | 17.0 | 7 - 21 mmol/L | EXTERNAL | | | | | | LAB | | + + + + + + | Estimated | 54 (A) | 60 mg/dL | EXTERNAL | | | GFR | | | LAB | | + + + + + + + + | Specimen | + + | Blood specimen | | (specimen) | + + + +---------+ + + | Performing | Address | City/State/Zipcode | Phone Number | | Organization | | | | + +---------+ + + | EXTERNAL LAB | | | | + +---------+ + + documented in this encounter Visit Diagnoses Not on filedocumented in this encounter"
--- OUTSIDE RECORDS SUMMARY | ~2019-09-08 | XMS | Encounter Summary ---
Demographics + + + | Address | [address] | | | [place] [address] | + + + | Home Phone | | + + + | Preferred Language | Unknown | + + + | Marital Status | Single | + + + | Gnosticist Affiliation | Unknown | + + + | Race | Unknown | + + + | Ethnic Group | Unknown | + + + Author + + + | Author | [facility] | | | and [place] | + + + | Organization | [facility] | | | [...] Team Providers + +------+ + | Care Hospital Internship Name | Role | Phone | + +------+ + PCP | Unavailable | + +------+ + Encounter Details +--------+ + + + + | Date | Type | Department | Care Team | Description | +--------+ + + + + | 01/08/ | Hospital | [facility] | Yogesh Aguilar, | | | 2009 | Encounter | MED CTR XRAY [address] | MD [address] | | | | | [place] | [place], [place] | | | | | [place] [address] | [address] | | | | | [phone] | | | +--------+ + + + [...] [place] | | | | | | [id number] | | | | | | | | +--------+---------+ + + + documented as of this encounter Visit Diagnoses Not on filedocumented in this encounter"
--- OUTSIDE RECORDS SUMMARY | ~2019-09-08 | XMS | Clinical Summary ---
Demographics + + + | Address | [address] | | | [place] [address] | + + + | Home Phone | | + + + | Preferred Language | Unknown | + + + | Marital Status | Single | + + + | Nondenominational Affiliation | Unknown | + + + | Race | Unknown | + + + | Ethnic Group | Unknown | + + + Author + + + | Author | [employer] [facility] (Historical as of | | | 04-13-19) | + + + | Organization | [facility] (Historical as of | | | 04-13-19) [...] Team Providers + +------+ + | Care Cd Mixer Helper Name | Role | Phone | + [...] CABG: noHx | | PCI/stent: 2002, PCI/stent ([place], specifics unknown).Hx | | Pacemaker/ICD: noLast Cath: 2002, PCI/stent ([place], specifics | | unknown).Last Echo: naLast stress [...] | | | | | | [place] [id number] | | | | | | [phone] | | | | | | | [...] +------+-------+ + | MEDICARE | MEDICA | [id number] | | | [address] | | | RE | | | | [place] [address] | | | IP-OP | | | | | + +--------+ +------+-------+ + | MAGALIE MARTINEZ - | CHERYL | [id number] | | | [address] | | [place] | [place] | | | | [place] | | | LIFE | | | | [address] | + +--------+ +------+-------+ + + +--------+ [...] | | | [place]ary | | | [address] | [place] [address] | + +--------+ +--------+ + +
--- OUTSIDE RECORDS SUMMARY | ~2019-09-08 | XMS | Encounter Summary ---
Demographics + + + | Address | [address] | | | [place] [address] | + + + | Home Phone | | + + + | Preferred Language | Unknown | + + + | Marital Status | Single | + + + | Islam Affiliation | Unknown | + + + | Race | Unknown | + + + | Ethnic Group | Unknown | + + + Author + + + | Author | [facility] | | | and [place] | + + + | Organization | [facility] | | | [...] Team Providers + +------+ + | Care Car Repairer Pullman Name | Role | Phone | + +------+ + | Henrik Oro DO | PCP | | + +------+ + Encounter Details +--------+ + + + + | Date | Type | Department | Care Team | Description | +--------+ + + + + | 09/28/ | Orders Only | [facility] | Henrik Oro DO | | | 2016 | | CARDIOLOGY [place] | [address] | | | | | [address] | [address], | | | | | [place], [place] | [place] [address] | | | | | [address] | [phone] | | | | | [phone] | | | +--------+ + + + [...] | | | | | [address] [place], [place] | | | | | | [address] | | | | | | | [...]
--- OUTSIDE RECORDS SUMMARY | ~2019-09-08 | XMS | Encounter Summary ---
Demographics + + + | Address | [address] | | | [place] [address] | + + + | Home Phone | | + + + | Preferred Language | Unknown | + + + | Marital Status | Single | + + + | Christianity Affiliation | Unknown | + + + [...] Team Providers + +------+ + | Care Cyber Engineer Name | Role | Phone | + +------+ + PCP | Unavailable | + +------+ + Encounter Details +--------+ + + + + | Date | Type | Department | Care Team | Description | +--------+ + + + + | 02/01/ | Hospital | [facility] | Yogesh Aguilar, | | | 2009 | Encounter | MED CTR XRAY [address] | MD [address] | | | | | [place] | [place], [place] | | | | | [place] [address] | [address] | | | | | [phone] | | | +--------+ + + + [...] [place] | | | | | | [id number] | | | | | | | | +--------+---------+ + + + documented as of this encounter Visit Diagnoses Not on filedocumented in this encounter"
--- OUTSIDE RECORDS SUMMARY | ~2019-09-08 | XMS | Encounter Summary ---
Demographics + + + | Address | [address] | | | [place] [address] | + + + | Home Phone | | + + + | Preferred Language | Unknown | + + + | Marital Status | Single | + + + | Restoration Affiliation | Unknown | + + + | Race | Unknown | + + + | Ethnic Group | Unknown | + + + Author + + + | Author | [facility] | | | and [place] | + + + | Organization | [facility] | | | [...] Team Providers + +------+ + | Care Outpatient Services Director Name | Role | Phone | + +------+ + PCP | Unavailable | + +------+ + Encounter Details +--------+ + + + + | Date | Type | Department | Care Team | Description | +--------+ + + + + | 03/22/ | Orders Only | [facility] | Provider, | | | 2018 | | SYSTEM GENERIC OP | [address] | | | | | CONVERSION [address] | [address] [place] | | | | | [address] [place], [place] | [place] [address] | | | | | [address] | | | | | | [phone] | | | +--------+ + + + [...] [place] | | | | | | [id number] | | | | | | | | +--------+---------+ + + + documented as of this encounter Visit Diagnoses Not on filedocumented in this encounter"
--- OUTSIDE RECORDS SUMMARY | ~2019-09-08 | XMS | Encounter Summary ---
Demographics + + + | Address | [address] | | | [place] [address] | + + + | Home Phone [...] + | Author | [facility] | | | and [place] | + + + | Organization | [facility] | | | and [...] Team Providers + +------+ + | Care Dub Room Engineer Name | Role | Phone | [...] | SR | | | | | [phone] | | | +--------+ + + + [...] [place] | | | | | | [address] | | | | | | | | +--------+---------+ + + + documented as of this encounter Visit Diagnoses Not on filedocumented in this encounter
--- OUTSIDE RECORDS SUMMARY | ~2019-09-08 | XMS | Encounter Summary ---
Demographics + + + | Address | [address] | | | [place] [address] | + + + | Home Phone | | + + + | Preferred Language | Unknown | + + + | Marital Status | Single | + + + | Restoration Affiliation | Unknown | + + + | Race | Unknown | + + + | Ethnic Group | Unknown | + + + Author + + + | Author | [facility] | | | and [place] | + + + | Organization | [facility] | | [...] Team Providers + +------+ + | Care Tabber Name | Role | Phone | + +------+ + PCP | Unavailable | + +------+ + Encounter Details +--------+ + + + + | Date | Type | Department | Care Team | Description | +--------+ + + + + | 07/04/ | Hospital | [facility] | Jeff Yogesh, | | | 2007 | Encounter | MED CTR XRAY [address] | MD [address] | | | | | [place] | [place], [place] | | | | | [place] [address] | [id number] | | | | | [phone] | | | +--------+ + + + [...] [place] | | | | | | [id number] | | | | | | | | +--------+---------+ + + + documented as of this encounter Visit Diagnoses Not on filedocumented in this encounter"
--- OUTSIDE RECORDS SUMMARY | ~2019-09-08 | XMS | Encounter Summary ---
Demographics + + + | Address | [address] | | | [place] [address] | + + + | Home Phone | | + + + | Preferred Language | Unknown | + + + | Marital Status | Single | + + + | Amish Affiliation | Unknown | + + + | Race | Unknown | + + + | Ethnic Group | Unknown | + + + Author + + + | Author | [facility] | | | and [place] | + + + | Organization | [facility] | | | and [place] | + + + | Address | Unknown | + + + | Phone | Unavailable | + + + Support + + +---------+ + | Name | Relationship | Address | Phone | + + +---------+ + | Eleni Diaz | ECON | Unknown | Unavailable | + + +---------+ + | Zeinab Malagonield | ECON | Unknown | | + + +---------+ + | Zenia Maharaj | ECON | Unknown | | + + +---------+ + Care Team Providers + +------+ + | Care Senior Courtroom Clerk Name | Role | Phone | + +------+ + PCP | Unavailable | + +------+ + Encounter Details +--------+ + + + + | Date | Type | Department | Care Team | Description | +--------+ + + + + | 09/20/ | Hospital | [facility] | | | | 2007 | Encounter | MED CTR XRAY [address] | | | | | | [place] | | | | | | [place] [address] | | | | | | [phone] | | | +--------+ + + + [...] [place] | | | | | | [address] | | | | | | | | +--------+---------+ + + + documented as of this encounter Visit Diagnoses Not on filedocumented in this encounter"
--- OUTSIDE RECORDS SUMMARY | ~2019-09-08 | XMS | Encounter Summary ---
Demographics + + + | Address | [address] | | | [place] [address] | + + + | Home Phone | | + + + | Preferred Language | Unknown | + + + | Marital Status | Single | + + + | Taoist Affiliation | Unknown | + + + | Race | Unknown | + + + | Ethnic Group | Unknown | + + + Author + + + | Author | [facility] | | | and [place] | + + + | Organization | [facility] | | | [...] Team Providers + +------+ + | Care Dimension Warehouse Supervisor Name | Role | Phone | + +------+ + PCP | Unavailable | + +------+ + Encounter Details +--------+ + + + + | Date | Type | Department | Care Team | Description | +--------+ + + + + | 09/20/ | Hospital | [facility] | | | | 2007 | Encounter | MED CTR XRAY [address] | | | | | | [place] | | | | | | [place] [address] | | | | | | [phone] | | | +--------+ + + + [...] [place] | | | | | | [address] | | | | | | | | +--------+---------+ + + + documented as of this encounter Visit Diagnoses Not on filedocumented in this encounter"
[~2019-09-08 09:19] MED LIST: AGGRENOX 25 MG-21 EA PO; AZITHROMYCIN250 MG PO; COZAAR100 MG PO; DILTIAZEM ER180 MG PO; HYDROCHLOROTHIA25 MG PO; JANUVIA100 MG PO; PRANDIN1 MG PO
[2019-09-08] MEDS ORDERED: LOSARTAN-HCTZ1 EACH PO (09:35)
[2019-09-08] MEDS ORDERED: ATORVASTATIN CA80 MG PO (09:35)
[2019-09-08] MEDS ORDERED: REPAGLINIDE1 MG PO (09:35)
[2019-09-08] MEDS ORDERED: JANUVIA50 MG PO (09:36)
--- NOTE | 2019-09-08 12:51 | EKG ---
[facility] [address] [place] [address] Signed Normal sinus rhythm Nonspecific ST abnormality Abnormal ECG When compared with ECG of 26-JAN-2017 19:34, No significant change was found Confirmed by GRETA RICHARDSON MD ([id number]) on 09/08/2019 12:51:13 PM Electronically Signed By: GRETA RICHARDSON MD 09/08/19 1251 PATIENT NAME: RONEY JENKINS Electrocardiogram DATE OF : 38 PHYSICIAN: GRETA RICHARDSON MD REPORT #: [id number] REPORT IS CONFIDENTIAL AND NOT TO BE RELEASED WITHOUT AUTHORIZATION
== END 2019-09-08 14:46 | disposition home or self-care (01) ==
LOC: ED 09:19
DX: J90 Pleural effusion, not elsewhere classified (principal); R91.8 Other nonspecific abnormal finding of lung field; E11.9 Type 2 diabetes mellitus without complications; Z86.73 Personal history of transient ischemic attack (TIA), and cerebral infarction without residual deficits; F17.200 Nicotine dependence, unspecified, uncomplicated; Z79.899 Other long term (current) drug therapy
CPT/HCPCS: 71046; 71260; 80053; 83880; 84484; 85025; 93005; 93010; 99285-25; Q9967

== ENCOUNTER 2019-09-15 08:47 | Emergency (ER) | payer MEDICARE, OTHER ==
[~2019-09-15] VITALS: Ht 180.3 cm; Wt 101.2 kg
[~2019-09-15 08:47] MED LIST changes: +ATORVASTATIN CA80 MG PO; +JANUVIA50 MG PO; +LOSARTAN-HCTZ1 EACH PO; +REPAGLINIDE1 MG PO
--- OUTSIDE RECORDS SUMMARY | 2019-09-15 08:50 | XMS ---
PreManage Notification: RONEY JENKINS Security Correction Officer Events No recent Security Events currently on file CRITERIA MET - [facility] - 2 Visits in 30 Days CARE PROVIDERS There are no care providers on record at this time. Alexus has no Care Guidelines for this patient. [facility] V[facility] (12 MO.) [facility] NOTE: Visits indicate total known visits. ED/C VISIT TRACKING (12 MO.) 09/15/2019 08:[address] [facility] [place] TYPE: Emergency COMPLAINT: - FLANK PAIN 09/08/2019 09:[address] [facility] [place] TYPE: Emergency COMPLAINT: - SOB DIAGNOSES: - Shortness of breath - Prsnl hx of TIA (TIA), and cereb infrc w/o resid deficits - 1 Type 2 diabetes mellitus without complications - Other nonspecific abnormal finding of lung field - Nicotine dependence, unspecified, uncomplicated - Pleural effusion, not elsewhere classified - Other intermediate teacher (current) drug therapy INPATIENT VISIT TRACKING (12 MO.) No inpatient visits to display in this time frame [email or web address]
[2019-09-15] MEDS ORDERED: ASPIRIN-DIPYRI1 EACH PO (09:04)
[2019-09-15] MEDS ORDERED: NORCO 5-325 TA1 EACH PO (14:10)
== END 2019-09-15 14:10 | disposition home or self-care (01) ==
LOC: ED 08:47
DX: R10.9 Unspecified abdominal pain (principal); C34.90 Malignant neoplasm of unspecified part of unspecified bronchus or lung; E11.9 Type 2 diabetes mellitus without complications; F17.200 Nicotine dependence, unspecified, uncomplicated
CPT/HCPCS: 71046; 80053; 81001; 83690; 85025; 99284-25